=== PATIENT | female | born 1995 | race Caucasian/White ===

== ENCOUNTER 2020-08-21 19:10 | Emergency (ER) | payer OTHER ==
[~2020-08-21] VITALS: Ht 167.6 cm; Wt 59.0 kg
[~2020-08-21 19:10] MED LIST: BACTRIM DS TAB1 EACH PO; NOHOMEMEDICATIONS; ULTRAM 50MG TAB50 MG PO
[2020-08-21 19:18] VITALS: BP 128/73
== END 2020-08-21 19:59 | disposition home or self-care (01) ==
LOC: M.ERS 19:10
DX: U07.1 COVID-19 (principal); J45.909 Unspecified asthma, uncomplicated